=== PATIENT | male | born 1980 | race American Indian/Alaskan Native ===

== ENCOUNTER 2020-02-28 09:32 | Emergency (ER) | payer SELFPAY ==
[2020-02-28 09:38] VITALS: BP 152/101
--- NOTE | 2020-02-28 11:17 | Emergency Department Report ---
Suture/Staple Removal - HPI Chief Complaint: Laceration/Recheck/Suture Stated Complaint: STAPLE REMOVAL FROM HEAD Time Seen by Provider: 02/28/20 11:13 When Sutures or Evelina Placed: >14 Days Ago Wound Location: scalp ED Review of Systems ROS: Stated complaint: STAPLE REMOVAL FROM HEAD Other details as noted in HPI Comment: All other systems reviewed and negative ED Past Medical Hx - Past Medical History Previous Medical History?: No - Surgical History Past Surgical History?: No - Social History Smoking Status: Current Every Day Smoker Substance Use Type: None - Medications Home Medications: Home Medications Medication Instructions Recorded Confirmed Last Taken Type Sulfamethoxazole/Trimethoprim 1 each PO BID 5 Days #10 tablet 02/08/20 Unknown Rx [Bactrim DS TAB] Suture Removal Exam - Exam General: Vital signs noted. No distress. Alert and acting appropriately. Wound: No Pathologic Erythema, No Tenderness, No Drainage, No Pus, No Wound Dehiscence Other Systems: All other systems reviewed and are unremarkable. ED Course Vital Signs 02/28/20 09:36 Temperature 97.8 F Pulse Rate 74 Respiratory 18 Rate Blood Pressure 152/101 [Right] O2 Sat by Pulse 96 Oximetry ED Recheck MDM - Medical Decision Making 39-year-old male presents with staple remover from scalp 8 evelina removed from the scalp. Without any complications. Patient tolerated procedure well. Vital signs are normal patient is in no acute distress. Critical care attestation.: If time is entered above; I have spent that time in minutes in the direct care of this critically ill patient, excluding procedure time. ED Disposition Clinical Impression: Encounter for staple removal Disposition: DC-01 TO HOME OR SELFCARE Is pt being admited?: No Does the pt Need Aspirin: No Condition: Stable Referrals: [facility] [Outside] - 3-5 Days [facility] [Outside] - 3-5 Days Forms: Work/School Release Form(ED) Time of Disposition: 11:16
== END 2020-02-28 11:25 | disposition home or self-care (01) ==
LOC: ED 09:32
DX: S01.01XD Laceration without foreign body of scalp, subsequent encounter (principal); F17.200 Nicotine dependence, unspecified, uncomplicated; Z79.899 Other long term (current) drug therapy; X58.XXXD Exposure to other specified factors, subsequent encounter